=== PATIENT | female | born 1995 | race Caucasian/White ===

== ENCOUNTER 2018-09-14 20:54 | Emergency (ER) | payer OTHER, BC ==
[2018-09-15] MEDS: HYDROCODONE/APAP (10/325) TAB PO (02:43)
== END 2018-09-15 06:39 | disposition home or self-care (01) ==
LOC: FTE 20:54
DX: S69.91XA Unspecified injury of right wrist, hand and finger(s), initial encounter (principal); W23.1XXA Caught, crushed, jammed, or pinched between stationary objects, initial encounter; Y92.9 Unspecified place or not applicable
CPT/HCPCS: 73130; 73130-RT; 99283-25